=== PATIENT | male | born 1970 | race Caucasian/White ===

== ENCOUNTER 2023-06-20 12:10 | Day surgery (SDC) | payer BC ==
[~2023-06-20] VITALS: Ht 177.8 cm; Wt 93.9 kg
[2023-06-20] MEDS ORDERED: NS 1000 ML IV.SOLN IV ONE (14:11)
[2023-06-20] MEDS ORDERED: NS IRRIG SOLN 1000 ML IR ONE (14:11)
[2023-06-20] MEDS ORDERED: LIDOCAINE 2%, 20 ML MDV ONE (14:11)
[2023-06-20] MEDS ORDERED: WATER FOR IRRIGATION,STERILE 1,000 ML IRRIG.SOLN IR ONE (14:11)
[2023-06-20] MEDS ORDERED: DEXAMETHASONE SOD PHOSPHATE 4 MG/ML VIAL ONE (14:11)
[2023-06-20] MEDS ORDERED: MUPIROCIN 2% TOPICAL OINTMENT 22 GM ONE (14:11)
[2023-06-20] MEDS ORDERED: LIDOCAINE/EPI 1% 1:100000 20 ML VIAL ONE (14:11)
[2023-06-20] MEDS ORDERED: DESFLURANE 15 MIN GAS INH ONE (14:11)
[2023-06-20] MEDS ORDERED: SUGAMMADEX SODIUM 200 MG/2 ML VIAL IV ONE (14:11)
[2023-06-20] MEDS ORDERED: ONDANSETRON HCL 4 MG/2 ML VIAL ONE (14:11)
[2023-06-20] MEDS ORDERED: MIDAZOLAM HCL 2 MG/2 ML VIAL (VERSED) ONE (14:11)
[2023-06-20] MEDS ORDERED: fentaNYL CITRATE/PF 100 MCG/2 ML AMP ONE (14:11)
[2023-06-20] MEDS ORDERED: PROPOFOL 200MG/ 20ML VIAL (DIPRIVAN) IV ONE (14:11)
[2023-06-20] MEDS ORDERED: ROCURONIUM BROMIDE 10 MG/ML (ZEMURON) ONE (14:11)
[2023-06-20 14:36] VITALS: O2SAT 99
[2023-06-20] MEDS ORDERED: HYDROmorphone 1 MG/ML INJ. CARTRIDGE IVP PRN ×2 (15:00)
[2023-06-20] MEDS ORDERED: MIDAZOLAM HCL 2 MG/2 ML VIAL (VERSED) IVP PRN (15:00)
[2023-06-20] MEDS ORDERED: hydrALAZINE HCL 20 MG/ML VIAL IVP PRN (15:00)
[2023-06-20] MEDS ORDERED: LR 1,000 ML IV SCH (15:00)
[2023-06-20] MEDS ORDERED: LABETALOL 100 MG/ 20ML VIAL IVP PRN (15:00)
[2023-06-20] MEDS ORDERED: METOCLOPRAMIDE HCL 10 MG/2 ML VIAL IVP PRN (15:00)
[2023-06-20] MEDS ORDERED: MEPERIDINE HCL/PF 25 MG/ML DISP.SYRIN IVP PRN (15:00)
[2023-06-20 19:17] VITALS: BP_SYST 121; PULSE 72; RESP 17
== END 2023-06-20 18:12 | disposition home or self-care (01) ==
LOC: SDS 12:10 → SMU 12:14 → SDS 18:12
PROVIDERS: ATTEND Otolaryngology
DX: D38.5 Neoplasm of uncertain behavior of other respiratory organs (principal); J34.2 Deviated nasal septum; J34.89 Other specified disorders of nose and nasal sinuses; H68.101 Unspecified obstruction of Eustachian tube, right ear; J45.20 Mild intermittent asthma, uncomplicated; I10 Essential (primary) hypertension; E66.9 Obesity, unspecified; Z79.899 Other long term (current) drug therapy; Z68.30 Body mass index [BMI] 30.0-30.9, adult
CPT/HCPCS: 31256; 88304; 30140; 30520; 31240; J3490; J1100; J2001; J3465; J2405; J2704; J3010; J7030